=== PATIENT | female | born 1985 | race Caucasian/White ===

== ENCOUNTER → 2016-11-15 | Outpatient (CLI) | payer OTHER ==
[~2016-11-15] MED LIST: ADVAIR INH; ADVIN50050 INH; CLR10 PO; IPRA17AE2 INH; PRED-301 PO; PRENTAB26 PO
--- NOTE | 2016-11-15 18:10 | ECHOCARDIOGRAM REPORT ---
*NOTICE TO RECEIVING DEMOCRAT AGENCY This information is strictly Confidential and protected under [place] law. [place] law prohibits you from making any further disclosure of this information unless further disclosure is expressly permitted by the written consent of the person to whom it pertains or is authorized by law. A general authorization for the release of medical or other information is not sufficient for this purpose. Hospital accepts no responsibility if the information is made available to any other person, INCLUDING THE PATIENT. Interpretation Summary * Name: FRANCO MELGAR Study Date: 11/15/2016 02:01 PM BP: 109/67 mmHg * Patient Location: [facility] HR: 90 * : 1985 (M/d/yyyy) Gender: Female Height: 65 in * Age: 31 yrs Ethnicity: CA Weight: 155 lb * Ordering Physician: CHARBEL HUANG * Referring Physician: CHARBEL HUANG V * Performed By: Gerber Cardoso RCS * * Reason For Study: Dyspnea * BSA: 1.8 m2 * -- Conclusions -- * Left ventricular systolic function is normal. * Right ventricular systolic pressure is normal. Procedure Details * A complete two-dimensional transthoracic echocardiogram was performed (2D, M-mode, Doppler and color flow Doppler). Left Ventricle * The left ventricle is normal in size. * There is normal left ventricular wall thickness. * Left ventricular systolic function is normal. * The left ventricular wall motion is normal. Right Ventricle * The right ventricle is normal in size and function. Atria * The left atrial size is normal. * Right atrial size is normal. Mitral Valve * The mitral valve anatomy is normal. * There is trace mitral regurgitation. Tricuspid Valve * The tricuspid valve anatomy is normal. * There is trace tricuspid regurgitation. * Right ventricular systolic pressure is normal. Aortic Valve * The aortic valve is normal in structure and function. * No hemodynamically significant valvular aortic stenosis. * No aortic regurgitation is present. Great Vessels * The aortic root is normal size. Pericardium/Pleural * There is no pericardial effusion. Great Vessels * Normal inferior vena cava diameter and respiratory variation suggests normal central venous pressure. MMode 2D Measurements and Calculations IVSd 0.82 cm IVSs 1.1 cm LVIDd 4.0 cm LVIDs 2.8 cm LVPWd 0.89 cm LVPWs 1.1 cm IVS/LVPW 0.92 FS 30.0 % EDV(Teich) 68.9 ml ESV(Teich) 29.0 ml EF(Teich) 57.9 % EDV(cubed) 62.7 ml ESV(cubed) 21.5 ml EF(cubed) 65.8 % % IVS thick 38.6 % % LVPW thick 21.3 % LV mass(C)d 100.5 grams LV mass(C)dI 56.6 grams/m\S\2 LV mass(C)s 85.8 grams LV mass(C)sI 48.4 grams/m\S\2 CO(Teich) 3.5 l/min CI(Teich) 2.0 l/min/m\S\2 SV(Teich) 39.9 ml SI(Teich) 22.5 ml/m\S\2 CO(cubed) 3.6 l/min CI(cubed) 2.0 l/min/m\S\2 SV(cubed) 41.2 ml SI(cubed) 23.2 ml/m\S\2 Ao root diam 3.3 cm Ao root area 8.8 cm\S\2 ACS 1.8 cm LA dimension 2.7 cm asc Aorta Diam 2.6 cm LA/Ao 0.81 LVAd ap4 32.6 cm\S\2 LVLd ap4 9.4 cm EDV(MOD-sp4) 94.0 ml LVAs ap4 16.6 cm\S\2 LVLs ap4 7.8 cm ESV(MOD-sp4) 30.0 ml EF(MOD-sp4) 68.1 % LVAd ap2 33.8 cm\S\2 LVLd ap2 9.4 cm EDV(MOD-sp2) 100.0 ml LVAs ap2 21.5 cm\S\2 LVLs ap2 7.7 cm ESV(MOD-sp2) 50.0 ml EF(MOD-sp2) 50.0 % CO(MOD-sp4) 5.6 l/min CI(MOD-sp4) 3.1 l/min/m\S\2 SV(MOD-sp4) 64.0 ml SI(MOD-sp4) 36.1 ml/m\S\2 CO(MOD-sp2) 4.4 l/min CI(MOD-sp2) 2.5 l/min/m\S\2 SV(MOD-sp2) 50.0 ml SI(MOD-sp2) 28.2 ml/m\S\2 Doppler Measurements and Calculations MV E max caty 73.7 cm/sec MV A max caty 64.8 cm/sec MV E/A 1.1 MV P1/2t max caty 78.5 cm/sec MV P1/2t 108.3 msec MVA(P1/2t) 2.0 cm\S\2 MV dec slope 212.3 cm/sec\S\2 MV dec time 0.29 sec Ao V2 max 108.0 cm/sec Ao max PG 4.7 mmHg Ao max PG (full) 1.2 mmHg LV V1 max PG 3.5 mmHg LV V1 max 93.3 cm/sec PA V2 max 84.7 cm/sec PA max PG 2.9 mmHg TR max caty 179.9 cm/sec
== END | disposition home or self-care (01) ==
LOC: C.CPL 13:39
PROVIDERS: ATTEND Internal Medicine Rheumatology
DX: R06.00 Dyspnea, unspecified (principal)